=== PATIENT | male | born 1990 | race Caucasian/White ===

== ENCOUNTER 2024-10-26 11:21 | Day surgery (SDC) | payer BC ==
[2024-10-26] MEDS: LACTATED RINGERS 1,000 ML IV SCH (12:27)
[2024-10-26] MEDS: IV FLUID CONTINUATION 1,000 ML IV ONE (12:29)
[2024-10-26 12:34] VITALS: RESP 16; TEMP 97.3
[2024-10-26] MEDS ORDERED: PROPOFOL 10 MG/ML 20 ML VIAL IV ONE (13:30)
[2024-10-26] MEDS ORDERED: LIDOCAINE 1% INJ 10MG/ML (20 ML MDV) ONE (13:30)
--- NOTE | 2024-10-26 13:48 | P.PCN ---
Date of Procedure: 10/26/24 Procedure(s) Performed: BRIEF HISTORY: Patient is a 33-year-old pleasant white male scheduled for an elective colonoscopy as a part of change in bowel habits and family history of colon cancer. His grandfather was diagnosed with colon cancer early 50s. PROCEDURE PERFORMED: Colonoscopy. PREOPERATIVE DIAGNOSIS: Change bowel habits and family history of colon cancer. IV sedation per Anesthesia. PROCEDURE: After informed consent was obtained, the patient, was brought into the endoscopy unit. IV sedation was administered by Anesthesia under continuous monitoring. Digital rectal examination was normal. Initially the Olympus CF-160 flexible video colonoscope was then inserted in the rectum, gradually advanced into the cecum without any difficulty. Careful examination was performed as the scope was gradually being withdrawn. Ileocecal valve and the appendiceal orifice were visualized and appeared normal. Prep was fair. Irrigation was performed.. Mucosa of the cecum, ascending colon, transverse colon, descending colon, sigmoid colon, and rectum appeared normal. Retroflexion was performed in the rectum and no lesions were seen. The patient tolerated the procedure well. IMPRESSION: Normal-appearing colon from rectum to cecum no evidence of colorectal neoplasia. RECOMMENDATIONS: Findings of this examination were discussed with the patient as well as his family. He was advised have a repeat screening colonoscopy at age 46..
[2024-10-26 14:06] VITALS: BP 121/71; PULSE 66
== END 2024-10-26 14:33 | disposition home or self-care (01) ==
LOC: ORWHC2ENDO 11:21
PROVIDERS: ATTEND Internal Medicine Gastroenterology
DX: R19.4 Change in bowel habit (principal); G47.33 Obstructive sleep apnea (adult) (pediatric); Z99.89 Dependence on other enabling machines and devices; Z80.0 Family history of malignant neoplasm of digestive organs; Z90.49 Acquired absence of other specified parts of digestive tract; Z79.899 Other long term (current) drug therapy
CPT/HCPCS: 45378; J2003; J2704